=== PATIENT | female | born 1970 | race Caucasian/White ===

== ENCOUNTER 2016-06-03 17:46 | Inpatient (IN) | payer MEDICAID ==
[~2016-06-03] VITALS: Ht 167.6 cm; Wt 101.1 kg
[2016-06-03] MEDS ORDERED: SODIUM CHLORIDE 0.9% 500 ML IV ONE (20:00)
[2016-06-03] MEDS ORDERED: SALINE FLUSH 10 ML FLUSH PRN (20:35)
[2016-06-03] MEDS ORDERED: MAG HYDROX 30 ML UDC PO PRN (20:35)
[2016-06-03] MEDS ORDERED: ALU/MAG/SIM 30 ML UDC PO PRN (20:35)
[2016-06-03] MEDS ORDERED: BISACODYL EC 5 MG TAB PO PRN (20:35)
[2016-06-03] MEDS ORDERED: BISACODYL 10 MG SUPP RECTAL PRN (20:35)
[2016-06-03] MEDS ORDERED: MORPHINE 4 MG/ML SYR ONE (20:38)
[2016-06-03] MEDS ORDERED: ONDANSETRON 4 MG VIAL ONE (20:38)
[2016-06-03] MEDS: METOPROLOL XL 50 MG TAB PO SCH (21:00)
[2016-06-03] MEDS ORDERED: NEUPOGEN 480MCG VIAL SUBQ ONE (21:35)
[2016-06-03 22:29] VITALS: BP_SYST 156; BP_SYST 158; RESP 18; TEMP 98.7
[2016-06-03 22:34] VITALS: Ht 167.6 cm; Wt 101.1 kg
[2016-06-03] MEDS: FLUCONAZOLE 200 MG/100 ML 100 ML IV SCH (22:41)
[2016-06-03] MEDS: SODIUM CHLORIDE 0.9% 1,000 ML IV SCH (22:41)
[2016-06-03] MEDS: LIDOCAINE 2% VISC 80 ML, DIPHENHYDRAMINE (FOR COMPOUND) 80 ML, NYSTATIN SUSP FOR CPD 80 ML SWISH.SWAL SCH ×4 (22:47)
[2016-06-03] MEDS: GABAPENTIN 600 MG TAB PO SCH (22:48)
[2016-06-03] MEDS: SUCRALFATE 1GM/10ML SUSP PO SCH (22:48)
[2016-06-03] MEDS: PANTOPRAZOLE 40 MG VIAL IV SCH (22:48)
[2016-06-03 23:02] VITALS: RESP 16
[2016-06-03] MEDS: MORPHINE 4 MG/ML SYR IV PRN (23:03)
[2016-06-03] MEDS: ACYCLOVIR 500 MG in SODIUM CHLORIDE 0.9% 100 ML IV SCH (23:58)
[2016-06-04] VITALS (14 sets, daily range): BP systolic 117–164; RESP 16–20; TEMP 97.4–100.9
[2016-06-04] MEDS: SODIUM CHLORIDE 0.9% FLUSH BAG 500 ML IV SCH (00:04)
[2016-06-04] MEDS: MORPHINE 4 MG/ML SYR IV PRN ×5 (03:07→20:38)
[2016-06-04] MEDS: SUCRALFATE 1GM/10ML SUSP PO SCH ×4 (05:38→20:40)
[2016-06-04] MEDS ORDERED: GLUCAGON 1 MG VIAL IM PRN (07:05)
[2016-06-04] MEDS ORDERED: DEXTROSE 50% SYRINGE 50 ML IV PRN (07:05)
[2016-06-04] MEDS: ACYCLOVIR 500 MG in SODIUM CHLORIDE 0.9% 100 ML IV SCH ×2 (07:43→18:09)
[2016-06-04] MEDS: FLUCONAZOLE 200 MG/100 ML 100 ML IV SCH (09:21)
[2016-06-04] MEDS: SALINE FLUSH 10 ML FLUSH SCH ×2 (09:36→20:00)
[2016-06-04] MEDS: MULTIVITS/MINERALS (THERAGRAN M) TAB PO SCH (09:37)
[2016-06-04] MEDS: PANTOPRAZOLE 40 MG VIAL IV SCH (09:37)
[2016-06-04] MEDS: LIDOCAINE 2% VISC 80 ML, DIPHENHYDRAMINE (FOR COMPOUND) 80 ML, NYSTATIN SUSP FOR CPD 80 ML SWISH.SWAL SCH ×16 (09:37→20:41)
[2016-06-04] MEDS: METOPROLOL XL 50 MG TAB PO SCH (09:37)
[2016-06-04] MEDS: DULoxetine 30 MG CAP PO SCH (09:37)
[2016-06-04] MEDS: GABAPENTIN 600 MG TAB PO SCH ×3 (09:37→20:40)
[2016-06-04] MEDS: ACETAMINOPHEN 325 MG TAB PO PRN (10:36)
[2016-06-04] MEDS: DIPHENHYDRAMINE 50 MG/ML VIAL IV PRN ×2 (10:36→21:02)
[2016-06-04] MEDS: FILL PIGGYBACK IV SCH (14:46)
[2016-06-04] MEDS: IVIG IV SCH (14:46)
[2016-06-04] MEDS: SODIUM CHLORIDE 0.9% 1,000 ML IV SCH (14:51)
[2016-06-04] MEDS ORDERED: METOPROLOL XL 100 MG TAB PO SCH (17:00)
[2016-06-04] MEDS: METOPROLOL XL 25 MG TAB PO SCH (20:41)
[2016-06-04] MEDS ORDERED: MISSING DOSE XX ONE (20:50)
[2016-06-05] VITALS (11 sets, daily range): BP systolic 128–162; RESP 16–20; TEMP 97.6–99.9
[2016-06-05] MEDS: ACETAMINOPHEN 325 MG TAB PO PRN (01:22)
[2016-06-05] MEDS: MORPHINE 4 MG/ML SYR IV PRN ×5 (02:20→22:14)
[2016-06-05] MEDS: ACYCLOVIR 500 MG in SODIUM CHLORIDE 0.9% 100 ML IV SCH ×5 (02:23→17:02)
[2016-06-05] MEDS: SODIUM CHLORIDE 0.9% FLUSH BAG 500 ML IV SCH (05:25)
[2016-06-05] MEDS: SUCRALFATE 1GM/10ML SUSP PO SCH ×4 (06:26→21:00)
[2016-06-05] MEDS: FLUCONAZOLE 200 MG/100 ML 100 ML IV SCH (07:59)
[2016-06-05] MEDS: SALINE FLUSH 10 ML FLUSH SCH ×2 (08:37→20:00)
[2016-06-05] MEDS: PANTOPRAZOLE 40 MG VIAL IV SCH (08:38)
[2016-06-05] MEDS: MULTIVITS/MINERALS (THERAGRAN M) TAB PO SCH (08:39)
[2016-06-05] MEDS: METOPROLOL XL 50 MG TAB PO SCH (08:39)
[2016-06-05] MEDS: GABAPENTIN 600 MG TAB PO SCH ×3 (08:39→21:15)
[2016-06-05] MEDS: DULoxetine 30 MG CAP PO SCH (08:39)
[2016-06-05] MEDS: LIDOCAINE 2% VISC 80 ML, DIPHENHYDRAMINE (FOR COMPOUND) 80 ML, NYSTATIN SUSP FOR CPD 80 ML SWISH.SWAL SCH ×16 (08:39→21:16)
[2016-06-05] MEDS ORDERED: DEXAMETHASONE 4 MG TAB PO SCH (09:00)
[2016-06-05] MEDS ORDERED: CALCIUM GLUCONATE 1,000 MG in SODIUM CHLORIDE 0.9% 100 ML IV ONE (10:00)
[2016-06-05] MEDS: DIPHENHYDRAMINE 50 MG/ML VIAL IV PRN (11:16)
[2016-06-05] MEDS: IVIG IV SCH (11:39)
[2016-06-05] MEDS: FILL PIGGYBACK IV SCH (11:39)
[2016-06-05] MEDS: SODIUM CHLORIDE 0.9% 1,000 ML IV SCH (17:03)
[2016-06-05] MEDS ORDERED: TEMAZEPAM 7.5 MG CAP PO PRN (20:25)
[2016-06-05] MEDS: METOPROLOL XL 25 MG TAB PO SCH (21:15)
[2016-06-05] MEDS ORDERED: MISSING DOSE XX ONE (21:15)
[2016-06-06] VITALS (20 sets, daily range): BP systolic 133–192; RESP 16–20; TEMP 97.3–98.6
[2016-06-06] MEDS: ACYCLOVIR 500 MG in SODIUM CHLORIDE 0.9% 100 ML IV SCH ×3 (00:17→15:24)
[2016-06-06] MEDS: MORPHINE 4 MG/ML SYR IV PRN ×4 (02:17→17:28)
[2016-06-06] MEDS: SODIUM CHLORIDE 0.9% FLUSH BAG 500 ML IV SCH (03:23)
[2016-06-06] MEDS: SODIUM CHLORIDE 0.9% 1,000 ML IV SCH (03:29)
[2016-06-06] MEDS ORDERED: MISSING DOSE XX ONE ×3 (05:30→20:20)
[2016-06-06] MEDS: SUCRALFATE 1GM/10ML SUSP PO SCH ×4 (06:32→20:12)
[2016-06-06] MEDS: DIPHENHYDRAMINE 50 MG/ML VIAL IV PRN ×2 (07:36→20:14)
[2016-06-06] MEDS: SALINE FLUSH 10 ML FLUSH SCH ×2 (08:00→20:12)
[2016-06-06] MEDS ORDERED: FILL PIGGYBACK IV ONE (08:30)
[2016-06-06] MEDS ORDERED: IVIG IV ONE (08:30)
[2016-06-06] MEDS: LIDOCAINE 2% VISC 80 ML, DIPHENHYDRAMINE (FOR COMPOUND) 80 ML, NYSTATIN SUSP FOR CPD 80 ML SWISH.SWAL SCH ×16 (08:43→20:12)
[2016-06-06] MEDS: FLUCONAZOLE 200 MG/100 ML 100 ML IV SCH (09:21)
[2016-06-06] MEDS: DULoxetine 30 MG CAP PO SCH (09:21)
[2016-06-06] MEDS: PANTOPRAZOLE 40 MG VIAL IV SCH (09:21)
[2016-06-06] MEDS: GABAPENTIN 600 MG TAB PO SCH ×3 (09:22→20:13)
[2016-06-06] MEDS: MULTIVITS/MINERALS (THERAGRAN M) TAB PO SCH (09:22)
[2016-06-06] MEDS: PREDNISONE 50 MG TAB PO SCH (09:22)
[2016-06-06] MEDS: METOPROLOL XL 50 MG TAB PO SCH (09:22)
[2016-06-06] MEDS ORDERED: SODIUM CHLORIDE 0.9% 1,000 ML IV SCH (09:50)
[2016-06-06] MEDS ORDERED: OPTIRAY 350 100 ML VIAL HMH IV ONE (14:59)
[2016-06-06] MEDS: ACETAMINOPHEN 325 MG TAB PO PRN (20:13)
[2016-06-06] MEDS: METOPROLOL XL 25 MG TAB PO SCH (20:15)
[2016-06-07] VITALS (9 sets, daily range): BP systolic 163–188; RESP 16–20; TEMP 97.8–98.3
[2016-06-07] MEDS: MORPHINE 4 MG/ML SYR IV PRN ×4 (02:53→18:30)
[2016-06-07] MEDS: ACYCLOVIR 500 MG in SODIUM CHLORIDE 0.9% 100 ML IV SCH ×3 (02:53→15:27)
[2016-06-07] MEDS: DUONEB INH PRN ×2 (04:08→20:45)
[2016-06-07] MEDS: SODIUM CHLORIDE 0.9% FLUSH BAG 500 ML IV SCH ×2 (05:45)
[2016-06-07] MEDS: PANTOPRAZOLE 40 MG TAB PO SCH (05:54)
[2016-06-07] MEDS: SUCRALFATE 1GM/10ML SUSP PO SCH ×4 (05:54→21:12)
[2016-06-07] MEDS ORDERED: Furosemide 40 MG/4 ML VIAL IV ONE (06:45)
[2016-06-07] MEDS: SALINE FLUSH 10 ML FLUSH SCH ×2 (07:40→21:14)
[2016-06-07] MEDS: DULoxetine 30 MG CAP PO SCH (09:17)
[2016-06-07] MEDS: GABAPENTIN 600 MG TAB PO SCH ×3 (09:17→21:12)
[2016-06-07] MEDS: FLUCONAZOLE 200 MG/100 ML 100 ML IV SCH (09:17)
[2016-06-07] MEDS: METOPROLOL XL 50 MG TAB PO SCH (09:17)
[2016-06-07] MEDS: MULTIVITS/MINERALS (THERAGRAN M) TAB PO SCH (09:18)
[2016-06-07] MEDS: LIDOCAINE 2% VISC 80 ML, DIPHENHYDRAMINE (FOR COMPOUND) 80 ML, NYSTATIN SUSP FOR CPD 80 ML SWISH.SWAL SCH ×16 (09:18→21:14)
[2016-06-07] MEDS: PREDNISONE 50 MG TAB PO SCH (09:18)
[2016-06-07] MEDS: METOPROLOL XL 25 MG TAB PO SCH (21:12)
[2016-06-08] VITALS (7 sets, daily range): BP systolic 164–208; RESP 16–20; TEMP 97.3–98.4
[2016-06-08] MEDS: MORPHINE 4 MG/ML SYR IV PRN ×3 (00:17→20:09)
[2016-06-08] MEDS: ACYCLOVIR 500 MG in SODIUM CHLORIDE 0.9% 100 ML IV SCH ×4 (00:17→23:48)
[2016-06-08] MEDS: SODIUM CHLORIDE 0.9% FLUSH BAG 500 ML IV SCH ×2 (06:00→07:20)
[2016-06-08] MEDS: PANTOPRAZOLE 40 MG TAB PO SCH (07:20)
[2016-06-08] MEDS: SUCRALFATE 1GM/10ML SUSP PO SCH ×4 (07:20→20:00)
[2016-06-08] MEDS: SALINE FLUSH 10 ML FLUSH SCH ×2 (07:53→20:00)
[2016-06-08] MEDS: FLUCONAZOLE 200 MG/100 ML 100 ML IV SCH (09:16)
[2016-06-08] MEDS: GABAPENTIN 600 MG TAB PO SCH ×3 (09:16→20:00)
[2016-06-08] MEDS: DULoxetine 30 MG CAP PO SCH (09:16)
[2016-06-08] MEDS: LIDOCAINE 2% VISC 80 ML, DIPHENHYDRAMINE (FOR COMPOUND) 80 ML, NYSTATIN SUSP FOR CPD 80 ML SWISH.SWAL SCH ×16 (09:17→20:00)
[2016-06-08] MEDS: PREDNISONE 50 MG TAB PO SCH (09:17)
[2016-06-08] MEDS: METOPROLOL XL 50 MG TAB PO SCH (09:17)
[2016-06-08] MEDS: MULTIVITS/MINERALS (THERAGRAN M) TAB PO SCH (09:17)
[2016-06-08] MEDS: amLODIPine 10 MG TAB PO SCH (11:27)
[2016-06-08] MEDS ORDERED: CALCIUM GLUCONATE 1,000 MG in SODIUM CHLORIDE 0.9% 100 ML IV ONE (12:05)
[2016-06-08] MEDS: Furosemide 40 MG/4 ML VIAL IV SCH ×2 (12:41→20:00)
[2016-06-08] MEDS: METOPROLOL XL 25 MG TAB PO SCH (20:00)
[2016-06-09 04:07] VITALS: BP_SYST 173; RESP 18; TEMP 97.6
[2016-06-09] MEDS: SUCRALFATE 1GM/10ML SUSP PO SCH ×4 (05:06→20:26)
[2016-06-09] MEDS: PANTOPRAZOLE 40 MG TAB PO SCH (05:06)
[2016-06-09] MEDS: SODIUM CHLORIDE 0.9% FLUSH BAG 500 ML IV SCH (05:07)
[2016-06-09] MEDS: MORPHINE 4 MG/ML SYR IV PRN ×3 (07:03→20:28)
[2016-06-09 07:05] VITALS: BP_SYST 170; RESP 20; TEMP 98.1
[2016-06-09] MEDS ORDERED: CALCIUM GLUCONATE 1,000 MG in SODIUM CHLORIDE 0.9% 100 ML IV ONE (07:45)
[2016-06-09] MEDS: SALINE FLUSH 10 ML FLUSH SCH ×2 (08:00→20:26)
[2016-06-09] MEDS: LIDOCAINE 2% VISC 80 ML, DIPHENHYDRAMINE (FOR COMPOUND) 80 ML, NYSTATIN SUSP FOR CPD 80 ML SWISH.SWAL SCH ×16 (08:14→20:28)
[2016-06-09] MEDS: Furosemide 40 MG/4 ML VIAL IV SCH ×2 (08:14→20:26)
[2016-06-09] MEDS: GABAPENTIN 600 MG TAB PO SCH ×3 (08:15→20:27)
[2016-06-09] MEDS: PREDNISONE 50 MG TAB PO SCH (08:15)
[2016-06-09] MEDS: METOPROLOL XL 50 MG TAB PO SCH (08:15)
[2016-06-09] MEDS: DULoxetine 30 MG CAP PO SCH (08:15)
[2016-06-09] MEDS: amLODIPine 10 MG TAB PO SCH (08:16)
[2016-06-09] MEDS: MULTIVITS/MINERALS (THERAGRAN M) TAB PO SCH (08:16)
[2016-06-09] MEDS: ACYCLOVIR 500 MG in SODIUM CHLORIDE 0.9% 100 ML IV SCH ×3 (10:36→23:27)
[2016-06-09 11:04] VITALS: BP_SYST 156; RESP 16; TEMP 98.2
[2016-06-09] MEDS: FLUCONAZOLE 200 MG/100 ML 100 ML IV SCH (11:15)
[2016-06-09] MEDS: Carvedilol 6.25 MG TAB PO SCH ×2 (11:18→20:27)
[2016-06-09 15:24] VITALS: BP_SYST 130; RESP 14; TEMP 97.9
[2016-06-09 19:10] VITALS: BP_SYST 141; RESP 16; TEMP 97.9
[2016-06-09 23:31] VITALS: BP_SYST 151; RESP 16; TEMP 98.1
[2016-06-10] MEDS: MORPHINE 4 MG/ML SYR IV PRN ×4 (01:00→20:24)
[2016-06-10 03:40] VITALS: BP_SYST 147; RESP 20; TEMP 97.6
[2016-06-10] MEDS: SODIUM CHLORIDE 0.9% FLUSH BAG 500 ML IV SCH (05:33)
[2016-06-10] MEDS: SUCRALFATE 1GM/10ML SUSP PO SCH ×4 (06:13→20:23)
[2016-06-10] MEDS: PANTOPRAZOLE 40 MG TAB PO SCH (06:14)
[2016-06-10 07:02] VITALS: BP_SYST 159; RESP 20; TEMP 98.1
[2016-06-10] MEDS ORDERED: CALCIUM GLUCONATE 1,000 MG in SODIUM CHLORIDE 0.9% 100 ML IV ONE (07:50)
[2016-06-10] MEDS: SALINE FLUSH 10 ML FLUSH SCH ×2 (08:05→20:23)
[2016-06-10] MEDS: Furosemide 40 MG/4 ML VIAL IV SCH (08:16)
[2016-06-10] MEDS ORDERED: KCL CR 20 MEQ TAB PO ONE (08:25)
[2016-06-10] MEDS: LIDOCAINE 2% VISC 80 ML, DIPHENHYDRAMINE (FOR COMPOUND) 80 ML, NYSTATIN SUSP FOR CPD 80 ML SWISH.SWAL SCH ×16 (08:48→20:23)
[2016-06-10] MEDS: GABAPENTIN 600 MG TAB PO SCH ×3 (08:51→20:23)
[2016-06-10] MEDS: PREDNISONE 50 MG TAB PO SCH (08:51)
[2016-06-10] MEDS: Carvedilol 6.25 MG TAB PO SCH ×2 (08:51→20:23)
[2016-06-10] MEDS: DULoxetine 30 MG CAP PO SCH (08:52)
[2016-06-10] MEDS: MULTIVITS/MINERALS (THERAGRAN M) TAB PO SCH (08:52)
[2016-06-10] MEDS: amLODIPine 10 MG TAB PO SCH (08:52)
[2016-06-10] MEDS: ACYCLOVIR 500 MG in SODIUM CHLORIDE 0.9% 100 ML IV SCH ×2 (10:00→18:12)
[2016-06-10 10:57] VITALS: BP_SYST 137; RESP 20; TEMP 97.9
[2016-06-10] MEDS: FLUCONAZOLE 200 MG/100 ML 100 ML IV SCH (11:12)
[2016-06-10 16:00] VITALS: BP_SYST 142; RESP 20; TEMP 98.3
[2016-06-10 19:46] VITALS: BP_SYST 160; RESP 18; TEMP 97.7
[2016-06-10 23:02] VITALS: BP_SYST 153; RESP 18; TEMP 97.9
[2016-06-11] MEDS: MORPHINE 4 MG/ML SYR IV PRN ×2 (01:28→05:40)
[2016-06-11 03:48] VITALS: BP_SYST 180; RESP 18; TEMP 97.5
[2016-06-11] MEDS: SODIUM CHLORIDE 0.9% FLUSH BAG 500 ML IV SCH (05:40)
[2016-06-11] MEDS: PANTOPRAZOLE 40 MG TAB PO SCH (06:28)
[2016-06-11] MEDS: SUCRALFATE 1GM/10ML SUSP PO SCH ×2 (06:28→10:57)
[2016-06-11] MEDS ORDERED: CALCIUM GLUCONATE 1,000 MG in SODIUM CHLORIDE 0.9% 100 ML IV ONE (06:50)
[2016-06-11 07:13] VITALS: BP_SYST 178; RESP 16; TEMP 98.1
[2016-06-11] MEDS ORDERED: PREDNISONE 20 MG TAB PO SCH (09:00)
[2016-06-11] MEDS: GABAPENTIN 600 MG TAB PO SCH (09:23)
[2016-06-11] MEDS: DULoxetine 30 MG CAP PO SCH (09:23)
[2016-06-11] MEDS: LIDOCAINE 2% VISC 80 ML, DIPHENHYDRAMINE (FOR COMPOUND) 80 ML, NYSTATIN SUSP FOR CPD 80 ML SWISH.SWAL SCH ×4 (09:23)
[2016-06-11] MEDS: amLODIPine 10 MG TAB PO SCH (09:24)
[2016-06-11] MEDS: MULTIVITS/MINERALS (THERAGRAN M) TAB PO SCH (09:24)
[2016-06-11] MEDS: Carvedilol 6.25 MG TAB PO SCH (09:24)
[2016-06-11] MEDS: SALINE FLUSH 10 ML FLUSH SCH (09:25)
[2016-06-11 10:58] VITALS: BP_SYST 153; RESP 16; TEMP 98.1
[2016-06-11 10:59] VITALS: RESP 16
[2016-06-11] MEDS ORDERED: KCL CR 20 MEQ TAB PO ONE (11:50)
[2016-06-11 12:40] VITALS: BP_SYST 153; RESP 16; TEMP 98.1
== END 2016-06-11 13:09 | disposition home or self-care (01) | DRG 813 ==
LOC: ENRESERVDT → ENRESERV → ENRESERVTM → ER 17:46 → EMR 20:13 → OBSVTOIN 20:58 → 4NT 22:15
PROVIDERS: ADMIT Internal Medicine; ATTEND Internal Medicine
CPT/HCPCS: 36415; 36430; 71010; 71260; 74177; 80048; 80053; 82607; 82746; 82947; 83880; 85025; 85610; 85730; 86923; 86945; 93306; 94640; 94799; 96374; 96375; 99232; 99238; 99255